=== PATIENT | female | born 1980 | race Caucasian/White ===

== ENCOUNTER 2017-01-14 08:25 | Observation (INO) | payer MEDICAID ==
[2017-01-14] MEDS ORDERED: LR 1,000 ML IV ONE (08:58)
[2017-01-14] MEDS ORDERED: LIDOCAINE 1% 2 ML INJ ID PRN (08:58)
[2017-01-14] MEDS ORDERED: BUPIVACAINE/EPI 0.5% 30 ML SDV ONE (10:17)
[2017-01-14] MEDS ORDERED: ceFAZolin 2 GM/DEXTROSE 100 ML IV ONE (10:45)
--- NOTE | 2017-01-14 10:45 | PDGENHP ---
History and Physical History and Physical: Assessment and Plan: 1. Endometriosis of pelvic peritoneum Evy has laparoscopic proven endometriosis, which appears to have been inadequately treated. We again reviewed all conservative and surgical options. At the end of our discussion, she is interested in robotic excision of all visible endometriosis. Because she lives 4 hours away, I will perform her preoperative counseling over the phone. 2. Dysmenorrhea 3. Dyspareunia, female 4. Cystocele 5. Genuine stress incontinence Subjective: Patient ID: Evy Laws is a 36 y.o. female who presents to [facility] for pelvic pain. TERI Ratliff is a 36-year-old, para one woman, who presents to discuss pelvic pain and endometriosis. She had a vaginal delivery in 1997 at the age of 18. In 2010 she developed rectal prolapse and underwent a rectopexy with resection of 12 inches of large bowel through a Pfannenstiel incision. She then developed pelvic pain and dysmenorrhea. She underwent a laparoscopy with fulguration of some left pelvic sidewall endometriosis in June of 2014. She was noted to have lesions on her bowel which were not treated. Her tubal perfusion study showed proximal obstruction of her left tube. She was also noted to have liver adhesions consistent with her history of chlamydia. She and her have been attempting to conceive without success for many years. They have begun some initial evaluation anticipating progressing to in vitro fertilization. However, her pain has progressively worsened. As a result, she feels she needs to address this for her quality of life and so that she may be able to care for a , if they achieve . Her cycles are regular every 30 days. She bleeds about 5 days. Four of the days are heavier when she will have to change a pad every 3-4 hours. She often will have accidents. She stopped using tampons secondary to discomfort with insertion. She develops pelvic pain beginning about 7 days before her menstrual flow. It progressively worsens until she has quite severe pain the day before and the first day of her menses. It then slowly improves. She has another exacerbation around the time of ovulation. She describes the pain as being most severe in the right lower quadrant as if she was being stabbed with a knife. She also has some contraction-like pain. She is a similar pain during ovulation. She tries using a hot pad, ibuprofen, hot bath, none of which provides any significant relief. Additionally, she has dyspareunia and dyschezia. After her laparoscopy she was started on control pills. This was not successful. Therefore, they added Depo-Provera to her pill. Recently, they recommended she use Lupron, but she is extremely hesitant. She only has a few good days per month. The pain often can be a 9/10. She has always had painful menses, but she was able to go to school and work. Of note, the president practicing urologist noted that she became very nauseated with vomiting postoperatively. He recommended that in the future she request a TIVA with no anesthetic gas since she has now had postop nausea vomiting twice. Her AMH in 2013 was 3.2. Her pelvic ultrasound was unremarkable. Her partner's semen analysis in January 2016 was abnormal with low viscosity, motility, and progression. He only had 25 to 50% normal sperm appearance. This was performed in [place]. She saw her primary care provider, Dr. Acosta Valerio in [place] who started her on a one month Lupron injection last January. She also was started on Celebrex during her menses. Additionally, she suffers from stress urinary incontinence. Her child only weighed 5 pounds, 6 ounces, with minimal tearing. She and her live in [place]. 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 PastMedicalHistory Past Medical History: Diagnosis Date Endometriosis PastSurgicalHistory Past Surgical History: Procedure Laterality Date PELVIC LAPAROSCOPY 2014 RECTOPEXY 2010 CURRENT MEDICATIONS: Current Outpatient Prescriptions Medication Sig CELECOXIB (CELEBREX PO) ERGOCALCIFEROL, VITAMIN D2, (VITAMIN D PO) ibuprofen (ADVIL,MOTRIN) 800 mg tablet Take 800 mg by mouth 3 times daily as needed for Pain. Take with food. No current facility-administered medications for this visit. ALLERGIES: Review of patient's allergies indicates no known allergies. I have reviewed, verified and agree with the past medical, surgical, , family, social and ROS history as documented by the RN today. Review of Systems Objective: Vital Signs: Visit Vitals BP 108/62 Pulse 73 Temp 37.3 C (99.1 F) (Temporal Artery) Resp 14 Ht 1.6 m (5' 3") Wt 60.6 kg (133 lb 9.6 oz) SpO2 93% BMI 23.67 kg/m2 Physical Exam Gen: This is an alert, well developed woman in no distress. Neuro: She moves all extremities. Psych: She is appropriate, oriented, with normal affect. Neck: No thyroid enlargement, adenopathy, or tenderness. Lungs: Clear to ascultation, no wheezes or rales. Heart: Regular rate and rhythm without obvious murmurs. Abdomen: Soft, non-tender, without guarding, rebound, or masses. Extremities: No edema or cyanosis. Pelvic: Normal external genitalia. Non-gaping introitus, vagina without discharge, adequately estrogenized, no significant prolapse. Cervix without lesions or discharge. Uterus normal sized, mobile, non-tender. Adnexa non- tender without enlargement. She has tenderness of both the anterior, but more so, the posterior cervix. The posterior cul-de-sac is exquisitely tender, as well as both uterosacral ligaments. She appears to have a nodule on the left aspect of the cervix near the lower uterine segment. This is exquisitely tender. Both adnexa are exquisitely tender, especially the left. A pelvic ultrasound showed no abnormalities. However, the adnexa appeared to be adherent to the pelvic sidewalls. The uterus may be adherent to bowel. The uterus has reduced mobility and is mid positioned. She has a greater than second-degree cystourethrocele with a moderately gaping introitus. DATA: I have reviewed patient's outside medical records. Summary findings include as noted above. TIME/COMMUNICATION: I personally spent a total of 60 minutes. Of that 40 minutes was counseling/ coordination of patient's care. See my note above for details. Red Orozco MD Board Certified Female Pelvic Medicine and Reconstructive Surgery Director of Minimally Invasive Gynecologic Surgery, [facility] Minimally Invasive Gynecologic Surgery Designee
[2017-01-14] MEDS ORDERED: fentaNYL 100 MCG/2 ML INJ ONE ×5 (10:49→14:41)
[2017-01-14] MEDS ORDERED: PROPOFOL 200 MG/20 ML VIAL ONE ×5 (10:49→13:26)
[2017-01-14] MEDS ORDERED: SCOPOLAMINE HYDROBROMIDE 1.5 MG PATCH TD ONE (10:50)
[2017-01-14] MEDS ORDERED: LIDOCAINE 2% 5 ML SDV ONE (10:50)
[2017-01-14] MEDS ORDERED: ONDANSETRON 4 MG/2 ML VIAL ONE ×2 (10:50→14:41)
[2017-01-14] MEDS ORDERED: KETOROLAC 30 MG/1 ML SDV ONE (10:50)
[2017-01-14] MEDS ORDERED: MIDAZOLAM 2 MG/2 ML VIAL IVP ONE (10:50)
[2017-01-14] MEDS ORDERED: DEXAMETHASONE 4 MG/ML VIAL ONE (10:50)
[2017-01-14] MEDS ORDERED: ROCURONIUM 100 MG/10 ML VIAL ONE (10:50)
[2017-01-14] MEDS ORDERED: SUGAMMADEX SODIUM 200 MG/2 ML VIAL IVP ONE (10:50)
--- NOTE | 2017-01-14 10:53 | PDANEPAE ---
ANE History of Present Illness h/o endometriosis ANE Past Medical History - Cardiovascular History Hx Hypertension: No Hx Arrhythmias: No Hx Chest Pain: No Hx Coronary Artery / Peripheral Vascular Disease: No Hx CHF / Valvular Disease: No Hx Palpitations: No - Pulmonary History Hx COPD: No Hx Asthma/Reactive Airway Disease: No Hx Recent Upper Respiratory Infection: No Hx Oxygen in Use at Home: No Hx Sleep Apnea: No Sleep Apnea Screening Result - Last Documented: Negative Pulmonary History Comment: smokes 10 cigs/day-trying to quit - Neurologic History Hx Cerebrovascular Accident: No Hx Seizures: No Hx Dementia: No - Endocrine History Hx Diabetes: No - Renal History Hx Renal Disorders: Yes Renal History Comment: incontince, painful urination - Liver History Hx Hepatic Disorders: No - Neurological & Psychiatric Hx Hx Neurological and Psychiatric Disorders: No - Cancer History Hx Cancer: No - Congenital Disorder History Hx Congenital Disorders: No - GI History Hx Gastrointestinal Disorders: Yes Gastrointestinal History Comment: constipation-"hurts to push" - Other Health History Other Health History: endometriosis - Chronic Pain History Chronic Pain: No - Surgical History Prior Surgeries: rectopexy 2010. laparoscopy -2014. cyst on vulva (on outside ) 2014 ANE Review of Systems - Exercise capacity METS (RN): 4 METS ANE Patient History - Allergies Allergies/Adverse Reactions: No Known Allergies Allergy (Unverified 12/26/16 15:55) - Home Medications Home medications: home medication list seen and reviewed, none Home Medications: NK [No Known Home Meds] 12/26/16 [Last Taken Unknown] - NPO status NPO Since - Liquids (Date): 01/14/17 NPO Since - Liquids (Time): 02:00 NPO Since - Solids (Date): 01/13/17 NPO Since - Solids (Time): 22:00 - Anes Hx Anes Hx: post operative nausea and vomiting - Smoking Hx Smoking Status: Heavy smoker - Family Anes Hx Family Anes Hx: none ANE Labs/Vital Signs - Vital Signs Blood Pressure: 101/65 Heart Rate: 55 Respiratory Rate: 16 O2 Sat (%): 95 Height: 160.02 cm Weight: 59.874 kg ANE Physical Exam - Airway Neck exam: FROM Mallampati Score: Class 1 Mouth exam: normal dental/mouth exam - Pulmonary Pulmonary: no respiratory distress - Cardiovascular Cardiovascular: regular rate and rhythym - ASA Status ASA Status: II ANE Anesthesia Plan Anesthesia Plan: general endotracheal anesthesia
[2017-01-14] MEDS ORDERED: METHYLENE BLUE 0.5% 50 MG/10 ML AMP ONE ×2 (11:37→11:46)
[2017-01-14] MEDS ORDERED: METOCLOPRAMIDE 10 MG/2 ML VIAL IVP PRN (13:47)
[2017-01-14] MEDS ORDERED: OXYCODONE/APAP 5/325 TAB PO PRN (13:47)
[2017-01-14] MEDS ORDERED: LR 500 ML IV PRN (13:47)
[2017-01-14] MEDS ORDERED: PROMETHAZINE HCL 25 MG/ML INJ IVP PRN ×2 (13:47→23:45)
[2017-01-14] MEDS ORDERED: ONDANSETRON 4 MG/2 ML VIAL IVP PRN ×2 (13:47→14:08)
[2017-01-14] MEDS ORDERED: NALOXONE HCL 0.4 MG/ML INJ IVP PRN (13:47)
[2017-01-14] MEDS ORDERED: ACETAMINOPHEN 500 MG TAB PO PRN (13:47)
--- NOTE | 2017-01-14 14:13 | POSTOPPROG ---
Post Op Note Date of Operation: 01/14/17 Surgeon: Red Orozco Sole Scraper: Dannielle Gibson Anesthesia: GET(General Endotracheal) Pre-op Diagnosis: endometriosis, pelvic pain Post-op Diagnosis: Same plus bilat tubal proximal occlussion Procedure: robotic excision of endo, bilat ureterolysis, myomectomy, tubal perfusion Findings: enstensive endo Inf/Abcess present in the surg proc area at time of surgery?: No EBL: Minimal Complications: None
[2017-01-14] MEDS ORDERED: HYDROmorphONE/DILAUDID 1 MG/ML SYR ONE ×2 (14:16→14:58)
[2017-01-14] MEDS: fentaNYL 100 MCG/2 ML INJ IVP PRN ×3 (14:19→14:44)
--- NOTE | 2017-01-14 14:19 | POSTANESTH ---
Post Anesthetic Evaluation Cardiovascular Status: Normal, Stable Respiratory Status: Normal, Stable Level of Consciousness/Mental Status: Can Participate in Eval Pain Control: Adequate, Prn Tx Ordered Nausea/Vomiting Control: Adequate, Prn Tx Ordered Complications Possibly Related to Anesthesia: None Noted
[2017-01-14] MEDS: HYDROmorphONE/DILAUDID 1 MG/ML SYR IVP PRN ×5 (14:22→21:47)
[2017-01-14] MEDS ORDERED: LR 1,000 ML IV SCH (14:30)
[2017-01-14] MEDS ORDERED: DIAZEPAM 10 MG/2 ML SYR IVP ONE (15:00)
[2017-01-14] MEDS ORDERED: DIAZEPAM 10 MG/2 ML SYR ONE (15:00)
[2017-01-14] MEDS: HYDROCODONE/APAP 5/325 TAB PO PRN (18:33)
[2017-01-14] MEDS: KETOROLAC 30 MG/1 ML SDV IVP SCH (23:59)
[2017-01-15] MEDS: KETOROLAC 30 MG/1 ML SDV IVP SCH ×4 (00:29→12:01)
--- NOTE | 2017-01-15 00:43 | GOP ---
[f rep st] OPERATIVE REPORT DATE OF OPERATION: 01/14/2017 SURGEON: Red Orozco MD GLASS BELT SANDER: Dannielle Gibson CFA ANESTHESIA: General. PREOPERATIVE DIAGNOSIS: 1. Endometriosis. 2. Pelvic pain. 3. Dysmenorrhea. 4. Dyschezia. POSTOPERATIVE DIAGNOSIS: 1. Endometriosis. 2. Pelvic pain. 3. Dysmenorrhea. 4. Dyschezia. 5. Bilateral tubal occlusion. PROCEDURE PERFORMED: 1. Robotic excision of extensive endometriosis throughout anterior and posterior cul-de-sacs and bilateral ovarian fossae. 2. Bilateral ureterolysis. 3. Bilateral ovarian pexy. 4. Laparoscopic myomectomy. 5. Excision of rectal lesion. 6. Tubal perfusion. FINDINGS: SPECIMENS: Pelvic peritoneum with endometriosis and uterine fibroid. ESTIMATED BLOOD LOSS: Less than 30 mL. DESCRIPTION OF PROCEDURE: The patient was taken to the operating room where she was identified. General anesthesia was administered and found to be adequate. She was placed in the lithotomy position and prepared and draped in normal sterile fashion. A [employer] uterine manipulator was placed into the endometrial cavity, and a Romero catheter was then placed. A 1 cm infraumbilical incision was made with a scalpel. The Veress needle with the CO2 gas flowing was advanced into the peritoneal cavity. The abdomen was then insufflated with carbon dioxide gas. The 12 mm trocar, followed by the laparoscope were then inserted. Two lateral ports were placed in the right and 1 on the left under direct visualization. The patient was then placed in Trendelenburg position, and the da Jayy robot docked on the left side. The instruments were then brought into the abdominal cavity under direct visualization. Findings: The patient had extensive endometriosis throughout both anterior and posterior cul-de-sacs, as well as both ovarian fossae. The rectum was adherent to the posterior lower uterine segment and cervix. The right adnexa was also adherent to the posterolateral aspect of the uterus. There was endometriosis on both tubes, as well as the uterus. Attention was first directed toward the rectum. The rectum was gently dissected off the posterior aspect of the uterus. The entire anterior cul-de- sac peritoneum was completely excised and removed. The lesions on the ovaries were excised and fulgurated. I then performed a bilateral ovarian pexy by attaching both ovaries to the ipsilateral round ligaments near their internal inguinal rings, given the patient's cyclic pelvic pain, as well as to aid in visualization. Prior to the ovarian pexy, a tubal perfusion study was performed. Methylene blue was injected into the endometrial cavity. The very proximal portion of the tubes were dilated, but no evidence of spillage beyond the proximal aspect of the tube was seen. Blue dye was extravasating into the myometrium and could be seen on the serosal surface. All tubal adhesions had previously been taken down. Attention was then turned to the right ovarian fossa. There was endometriosis overlying both ureters. As a result, a bilateral ureterolysis was required. The peritoneum near the pelvic brim was incised. The ureter was gently dissected free. The ureter was lateralized off the overlying peritoneum endometriosis, all the way down to the bladder. Once this was accomplished, the entire ovarian fossa peritoneum was completely excised bilaterally. The lesions on the distal rectum were excised. Finally, the posterior cul-de-sac peritoneum was completely excised from the distal rectum, all the way up to the cervix and laterally to include both uterosacral ligaments. Finally, an anterior fibroid was excised from the serosal surface. The endometriosis on the serosal surface was fulgurated. The pelvis was then copiously irrigated with sterile saline, and hemostasis was present. Three sheets of Interceed were placed in the posterior cul-de-sac to try to minimize postoperative adhesion formation. The robot was then undocked. The fascia was closed with 0 Vicryl, skin with 4-0 Monocryl and surgical adhesive. Anesthesia was reversed, and the patient taken the PACU awake, in stable condition. COMPLICATIONS: None. DISPOSITION: Patient stable to PACU. /[id number]/MODL MTDHernando
[2017-01-15] MEDS: HYDROCODONE/APAP 5/325 TAB PO PRN ×4 (04:39→14:18)
[2017-01-15 05:22] LABS: HEMATOCRIT 25.9 % (38.0-47.0); HEMOGLOBIN 8.7 g/dL (12.6-16.3)
[2017-01-15 09:56] VITALS: RESP 16
[2017-01-15] MEDS ORDERED: PATCH REMOVAL 1 EA PATCH TD ONE (10:50)
[2017-01-15 12:59] VITALS: BP 90/56; PULSE 61; TEMP 98; O2SAT 95
--- NOTE | 2017-01-15 21:17 | GDS ---
[f rep st] DISCHARGE SUMMARY DISCHARGE DIAGNOSES: 1. Stage 4 endometriosis. 2. Dysmenorrhea. 3. Pelvic pain. 4. Dyschezia. PROCEDURES: 1. Robotic excision of extensive endometriosis throughout the anterior and posterior cul-de-sac, as well as bilateral ovarian fossae and distal rectum. 2. Bilateral ureterolysis. 3. Bilateral ovarian pexy. 4. Laparoscopic myomectomy. 5. Excision of rectal lesion. 6. Tubal perfusion. HISTORY: The patient is a 37-year-old, para 1 woman with a long history of severe endometriosis. S he was taken to the operating room on 01/14/2017, where she underwent the above-mentioned procedures , which she tolerated well. She had extensive excision of endometriosis. Her tubal perfusion study unfortunately showed bilateral proximal tubal occlusion. She had a very small subserosal fibroid o n the anterior serosa which was excised. Her postoperative course was complicated only by typical postoperative pain. She required a 1 night stay in the hospital. The day after surgery she was ambulating, voiding, and tolerating a general diet. She was discharged home with [place] and ibuprofen for pain. She was to follow up by phone 2 w eeks after discharge. /[id number]/MODL
== END 2017-01-15 17:44 | disposition home or self-care (01) ==
LOC: FSGY 08:25 → FOB 14:08
PROVIDERS: ADMIT Obstetrics & Gynecology; ATTEND Obstetrics & Gynecology
PROC: 3E0P3KZ Introduction of Other Diagnostic Substance into Female Reproductive, Percutaneous Approach (ICD-10-PCS; principal; 2017-01-14 09:45)
PROC: 0UBF4ZZ Excision of Cul-de-sac, Percutaneous Endoscopic Approach (ICD-10-PCS; principal; 2017-01-14 09:45)
PROC: 0TB64ZZ Excision of Right Ureter, Percutaneous Endoscopic Approach (ICD-10-PCS; principal; 2017-01-14 09:45)
PROC: 0TB74ZZ Excision of Left Ureter, Percutaneous Endoscopic Approach (ICD-10-PCS; principal; 2017-01-14 09:45)
PROC: 0UB94ZX Excision of Uterus, Percutaneous Endoscopic Approach, Diagnostic (ICD-10-PCS; principal; 2017-01-14 09:45)
PROC: 0UB24ZZ Excision of Bilateral Ovaries, Percutaneous Endoscopic Approach (ICD-10-PCS; principal; 2017-01-14 09:45)
PROC: 0DBP4ZX Excision of Rectum, Percutaneous Endoscopic Approach, Diagnostic (ICD-10-PCS; principal; 2017-01-14 09:45)
PROC: 8E0W4CZ Robotic Assisted Procedure of Trunk Region, Percutaneous Endoscopic Approach (ICD-10-PCS; principal; 2017-01-14 09:45)
DX: N80.3 Endometriosis of pelvic peritoneum (principal); N80.5 Endometriosis of intestine; N80.1 Endometriosis of ovary; N94.6 Dysmenorrhea, unspecified; N97.1 Female infertility of tubal origin; N81.10 Cystocele, unspecified; D25.2 Subserosal leiomyoma of uterus; N39.3 Stress incontinence (female) (male); K59.00 Constipation, unspecified; K63.9 Disease of intestine, unspecified; Z87.42 Personal history of other diseases of the female genital tract
CPT/HCPCS: 58662; C1765; G0378; J0690; J1100; J1170; J1885; J2250; J2405; J2550; J2704; J3010; Q9968